=== PATIENT | female | born 2000 | race Caucasian/White ===

== ENCOUNTER → 2023-09-11 08:30 | Outpatient (REF) | payer OTHER, SELFPAY | LOC: RCS 08:30 | PROVIDERS: ATTENDING PHYSICIAN Nurse Practitioner Adult Health | DX: R42 Dizziness and giddiness (principal); R61 Generalized hyperhidrosis; R00.1 Bradycardia, unspecified | CPT/HCPCS: 93225; 93226 ==

== ENCOUNTER → 2024-03-02 19:38 | Outpatient (REF) | payer OTHER, SELFPAY | LOC: MRI 19:38 | PROVIDERS: ATTENDING PHYSICIAN Nurse Practitioner Adult Health | DX: R51.9 Headache, unspecified (principal) | CPT/HCPCS: 70553; A9575 ==

== ENCOUNTER 2025-02-14 20:55 | Emergency (ER) | payer OTHER, SELFPAY ==
[2025-02-14 20:57] VITALS: BP 156/107
--- NOTE | 2025-02-14 22:54 | ED.GENMED ---
History of Present Illness
General
Chief Complaint: Musculo-Skeletal Complaint
Source: patient and family
Exam Limitations: none
Time Seen by Provider: 02/14/25 21:55
Nursing documentation reviewed up to this point in time: agreed with
History of Present Illness
History of Present Illness:
24-year-old female presenting to the emergency department today with concerns of right hand discomfort mainly to the end of her fourth after getting hit by a door. Has had some swelling discomfort to the area since. Denies additional concerns. No
numbness or weakness.
Past History
Past History
ED Past Medical History: None
ED Past Surgical History: None
Social History
Tobacco: Non-smoker
Alcohol: None
Drug: None
Personal: Single
Living: with family
Employment: Employed
Family History
Family History: Other (nc)
Review of Systems
Review of Systems
Allergies reviewed?: Yes
All Other Systems: ROS reviewed and negative except as documented in HPI and ROS
Phy Exam
Physical Exam
Physical Exam:
GENERAL: Alert , in no apparent distress
EYE: pupils equal and reactive
NECK: Supple, no significant adenopathy.
ENT: o/p clr, mmm.
CARDIAC: Regular rate and rhythm .
LUNGS: Clear breath sounds bilaterally, no acute respiratory distress, no wheezes/rales/rhonchi
ABDOMEN: Soft, without focal tenderness, no r/g, no cvat
NEUROLOGICAL: Alert and oriented, no focal neuro deficits
SKIN: Warm and dry, skin intact.
MUSCULOSKELETAL: Tenderness and swelling to the right distal ring finger otherwise no significant tenderness or swelling. Good range of motion of all fingers and wrist. , well perfused.
PSYCH: Normal and appropriate interaction.
Course
Orders/Labs/Results
Orders:
Orders
02/14/25 21:20
Hand, Right 3 View [CR Hand - Right Min 3 Views] Urgent
Comment:
Reason For Exam: caught in car door attn to 3 & 4 fingers
Vital Signs
Initial and Last Documented VS:
Initial Vital Signs
Temp Pulse Resp BP Pulse Ox
98.2 F 86 16 156/107 100
02/14/25 20:57 02/14/25 20:57 02/14/25 20:57 02/14/25 20:57 02/14/25 20:57
Last Documented Vital Signs
Temp Pulse Resp BP Pulse Ox
98.2 F 86 16 156/107 100
02/14/25 20:57 02/14/25 20:57 02/14/25 20:57 02/14/25 20:57 02/14/25 22:55
Procedures
Splinting/Sling Placement
Right Second Finger:
Procedure completed by: Myself
Pre-splint extermity exam: neurovascular intact
Type of splint: finger-extension position
Splint material: aluminum-foam
Splint checked by provider?: Yes
Normal distal neurovascular exam?: Yes
MDM/Problems Addressed
MDM/Problems Addressed:
24-year-old female presenting with concerns of right ring finger discomfort after being hit in a barn door. X-ray showing a distal phalanx fracture. This was splinted otherwise will follow-up with orthopedics. Return precautions given.
*Pulse Oximetry
SaO2: 100
Oxygen Mode of Delivery: Room air
Patient hypoxic: no (100)
*Critical Care Note
Total Time (30-74mins, 75-104mins- exclusive of procedures): Not Applicable
ED Attending Note
-
Portions of this chart may have been created with voice recognition software.� Occasional wrong word or��sound alike� substitutions may have occurred due to the inherent limitations of voice recognition software.
Discharge Plan
Departure
Patient Disposition: Home (Routine Discharge)
Date of Disposition: 02/14/25
Time of Disposition: 22:54
Patient with high blood pressure during this ER visit?: No
Condition: Good
Covid-19: Not Applicable
Discharge Problem:
Fracture of distal phalanx of finger
Instructions: Finger Fracture ED
Prescriptions:
No Action
No Current Medications
amoxicillin [Amoxil] 875 MG tablet
875 mg PO BID Qty: 14 0RF
amoxicillin-pot clavulanate 875-125 mg tablet
1 tab PO Q12H Qty: 14 0RF
ibuprofen 600 mg tablet
600 mg PO Q6H PRN (Reason: fever or pain) Qty: 20 0RF
Referrals:
Farrah Dooley CRNP [Family Provider, Internal Medicine]
Stevie Prater MD [Active, Orthopedics] - Follow up in 5-7 days
Activity Restrictions/Additional Instructions:
You came to the emergency department today with concerns of a finger injury. You are found to have a distal phalanx fracture. Please wear the splint until orthopedic follow-up in the next 1 to 2 weeks with the listed orthopedic doctor. In the
meantime please rest ice and elevate to help with symptoms. Return for any worsening, new or concerning symptoms.
Interventions
Interventions:
*Risk Screen - Suicide Last Done: 02/14/25 20:57
*General Assessment Last Done: 02/14/25 20:57
*Neglect/Abuse Screening Last Done: 02/14/25 20:57
*ED- Fall Risk Assessment Last Done: 02/14/25 23:17
*ED COVID-19 Vaccine History Last Done: 02/14/25 20:57
*Nursing Disposition Last Done: 02/14/25 23:17
ED-Musculoskeletal Assessment Last Done: 02/14/25 22:45
Discharge Date and Time
Discharge Date/Time: 02/14/25 23:18
Print Language: ROMANSH
--- NOTE | 2025-02-14 23:00 | EDRN ---
Cleaned finger and placed splint on it.
== END 2025-02-14 23:18 | disposition home or self-care (01) ==
LOC: EMR 20:55
PROVIDERS: EMERGENCY PHYSICIAN Emergency Medicine; FAMILY PHYSICIAN Nurse Practitioner Adult Health
DX: S62.634A Displaced fracture of distal phalanx of right ring finger, initial encounter for closed fracture (principal); X58.XXXA Exposure to other specified factors, initial encounter
CPT/HCPCS: 99283; 29130; 73130